=== PATIENT | male | born 1990 | race Caucasian/White ===

== ENCOUNTER 2016-06-19 15:12 | Emergency (ER) | payer BC, OTHER ==
[2016-06-19 15:30] VITALS: RESP 18; TEMP 98; O2SAT 97
--- NOTE | 2016-06-19 15:33 | EDPHY ---
H & P Chief Complaint Nursing Narrative: c/o Lt wrist pain after falling snowboarding today- visiting from [place]- leaving tonight HPI/ROS: HPI CHIEF COMPLAINT: Left wrist pain HISTORY OF PRESENT ILLNESS: this patient very pleasant 26-year-old male, no significant medical history is visiting from out of town was skiing at [place] he landed on outstretched left wrist immediately had pain and swelling. No other injuries. Denies neurovascular dysfunction specifically no weakness, numbness or tingling. Has localized pain to distal radius. Past Medical History: No significant medical history Past Surgical History: No significant surgical history Social History:Lives in [place], denies drugs alcohol tobacco products Family History: Noncontributory ROS REVIEW OF SYSTEMS: A comprehensive 10 point review of systems is otherwise negative aside from elements mentioned in the history of present illness. Exam Constitutional triage nursing summary reviewed, vital signs reviewed, awake/ alert. Eyes normal conjunctivae and sclera, EOMI, PERRLA. HENT normal inspection, atraumatic, moist mucus membranes, no epistaxis, neck supple/ no meningismus, no raccoon eyes. Respiratory clear to auscultation bilaterally, normal breath sounds, no respiratory distress, no wheezing. Cardiovascular rate normal, regular rhythm, no murmur, no edema, distal pulses normal. Gastrointestinal soft, non-tender, no rebound, no guarding, normal bowel sounds, no distension, no pulsatile mass. Genitourinary no CVA tenderness. 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 Skin pink, warm, & dry, no rash, skin atraumatic. Neurologic awake, alert and oriented x 3, AAOx3, moves all 4 extremities equally, motor intact, sensory intact, CN II-XII intact, normal cerebellar, normal vision, normal speech. Psychiatric normal mood/affect. Heme/Lymph/Immune no lymphadenopathy. Differential Diagnosis:Includes but is not limited to in a particular order, wrist fracture, distal radius fracture, buckle fracture, distal ulnar fracture, carpal bone fracture, scaphoid fracture Medical Decision Making: plan for this patient is to have an x-ray of the left wrist and narcotic pain medicine. Re-evaluation: ED x-ray: Left wrist: This shows a dorsally angulated distal radius fracture. Due to this patient's significant left wrist fracture patient will need conscious sedation to be splinted. I need to manipulate his wrist. He will need post reduction x-ray. He verbally consents for conscious sedation. Procedure: Procedural sedation. Indication: Significant left wrist fracture dorsally angulated needs reduction A pre-sedation evaluation was completed on the patient just prior to the procedure. Patient is an appropriate candidate for procedural sedation with ASA class 1E. The risks of the sedation were discussed including but not limited to dysrhythmia, need for airway intervention or general anesthesia, disability, ; and verbal consent obtained. A timeout was observed and patient's identity confirmed. The patient was sedated with 130 mg propofol. The patient was monitored with continuous pulse oximetry, capnography, and marine air ground task force planners. There were no complications and no significant hypoxemia. I remained at the bedside for the sedation. The total time I spent in the procedural sedation was 30 Minutes. The patient tolerated this very well 1657: during conscious sedation this patient was placed in a sugar-tong splint. Post splint placement he is neurovascular intact of wiggle his fingers , good cap refill, warm extremity no numbness or tingling. ED x-ray: Post reduction left wrist: Much better alignment of the dorsally angulated distal radius. 1733: patient is now in a sugar-tong splint. He is stabilized. His pain is well controlled. Neurovascularly intact. Better alignment on post reduction x- ray. Prescription given for ibuprofen and [place]. 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 A disc with his x-rays films have been given to him. Source: Patient - Personal History Current Tetanus Diphtheria and Acellular Pertussis (TDAP): Yes - Medical/Surgical History Other PMH: denies - Social History Smoking Status: Never smoked Constitutional: Initial Vital Signs Temperature (C) 36.6 C 06/19/16 15:29 Heart Rate 77 06/19/16 15:29 Respiratory Rate 18 06/19/16 15:29 Blood Pressure 157/63 H 06/19/16 15:29 O2 Sat (%) 97 06/19/16 15:29 O2 Delivery Mode Room Air Allergies/Adverse Reactions: No Known Allergies Allergy (Unverified 06/19/16 15:29) Home Medications: Medication Instructions Recorded Hydrocodone/APAP 5/325 [[place] 1 - 2 tab PO Q4H PRN #20 tab 06/19/16 5/325] Ibuprofen [Motrin (*)] 800 mg PO Q6-8PRN #30 tab 06/19/16 Medical Decision Making - Data Points Medications Given: Discontinued Medications Hydrocodone Bitart/Acetaminophen ([place] 5/325mg Prepack#6) 1 btl TAKEHOME EDNOW ONE Stop: 06/19/16 15:35 Last Admin: 06/19/16 15:52 Dose: 1 btl Hydrocodone Bitart/Acetaminophen ([place] 5/325) 1 tab PO EDNOW ONE Stop: 06/19/16 15:35 Last Admin: 06/19/16 15:52 Dose: 1 tab Propofol (Diprivan) 200 mg IVP EDNOW ONE Stop: 06/19/16 16:15 Last Admin: 06/19/16 17:03 Dose: 200 mg Departure - Departure Disposition: Home, Routine, Self-Care Clinical Impression: Wrist fracture, left Qualifiers: Encounter type: initial encounter Fracture type: closed Qualified Code(s): S62.102A - Fracture of unspecified carpal bone, left wrist, initial encounter for closed fracture Condition: Good Instructions: Wrist Fracture in Adults (ED) Additional Instructions: 1.Ice your wrist. 2. Stay in your splint. 3. Follow up with Orthopedics in [place]. 4. Return to the emergency room if he develops worsening symptoms includes worsening pain, worsening swelling numbness tingling or questions or concerns. Referrals: Dinesh Irizarry MD [Medical Doctor] - As per Instructions Prescriptions: Hydrocodone/APAP 5/325 [[place] 5/325] 1 - 2 tab PO Q4H PRN #20 tab PRN Reason: Pain, Moderate Ibuprofen [Motrin (*)] 800 mg PO Q6-8PRN #30 tab
[2016-06-19] MEDS ORDERED: HYDROCOD/APAP 5/325 PREPACK#6 BTL TAKEHOME ONE (15:34)
[2016-06-19] MEDS ORDERED: HYDROCODONE/APAP 5/325 TAB PO ONE (15:34)
[2016-06-19] MEDS ORDERED: PROPOFOL 200 MG/20 ML VIAL IVP ONE (16:14)
[2016-06-19] MEDS ORDERED: FLUMAZENIL 0.5 MG/5 ML MDV IVP ONE (16:28)
[2016-06-19] MEDS ORDERED: NALOXONE HCL 0.4 MG/ML INJ ONE (16:28)
[2016-06-19 18:39] VITALS: BP 124/65; PULSE 75
== END 2016-06-19 18:35 | disposition home or self-care (01) ==
LOC: CED 15:12
PROC: 0PSNXZZ Reposition Left Carpal, External Approach (ICD-10-PCS; principal; 2016-06-19)
PROC: 2W3DX1Z Immobilization of Left Lower Arm using Splint (ICD-10-PCS; principal; 2016-06-19)
DX: S62.102A Fracture of unspecified carpal bone, left wrist, initial encounter for closed fracture (principal); V00.311A Fall from snowboard, initial encounter; Y93.23 Activity, snow (alpine) (downhill) skiing, snowboarding, sledding, tobogganing and snow tubing
CPT/HCPCS: 73110-PO; G0463-PO; J2310; J2704